=== PATIENT | female | born 1990 | race Two or more races ===

== ENCOUNTER 2021-12-21 16:25 | Emergency (ER) | payer SELFPAY ==
[~2021-12-21] VITALS: Ht 160 cm; Wt 90.9 kg
[2021-12-21 17:02] VITALS: BP 122/100
--- NOTE | 2021-12-21 17:33 | RAD ---
EXAM: XR EXAM OF ANKLE_LEFT 3V 12/21/2021 5:13 PM CLINICAL INDICATION: Right ankle injury COMPARISON: None TECHNIQUE: An oblique, and lateral views of the right ankle were obtained FINDINGS: No acute fracture. Alignment is normal. Joint spaces are maintained. The talar dome is int act. There is a probable accessory navicular noted. Mild circumferential soft tissue swelling. IMPRESSION: No acute osseous abnormality. Mild soft tissue swelling. Electronically signed by: Evon Ray MD (12/21/2021 5:30 PM) AB[facility]IN[facility]
[2021-12-21] MEDS ORDERED: HYDR-2761 PO (17:56)
--- NOTE | 2021-12-21 17:58 | PHYS DOC ---
Past Medical History Additional Past Medical Histor: ADD Past Surgical History: No Surgical History General Adult EDM: Chief Complaint: ANKLE PROBLEM HPI: HPI: Patient is a 31-year-old female who presents to the emergency department for left lateral ankle pain that occurred 2 weeks ago. Patient reports that she was stepping off a step and twisted her ankle. She rates her pain 7 out of 10. She states that she was initially able to bear weight but has had increasing pain causing her inability to fully bear weight. She has been taking ibuprofen at home. She denies any decreased range of motion or wounds or decreased sensation in her extremity. Review of Systems: Review of Systems: Musculoskeletal: See HPI Integument: See HPI Neurologic: See HPI Heart Score: C/O Chest Pain: N/A Risk Factors: Risk Factors: DM, Current or recent (<one month) smoker, HTN, HLP, family history of CAD, obesity. Risk Scores: Score 0 - 3: 2.5% MACE over next 6 weeks - Discharge Home Score 4 - 6: 20.3% MACE over next 6 weeks - Admit for Clinical Observation Score 7 - 10: 72.7% MACE over next 6 weeks - Early Invasive Strategies Physical Exam: PE: Constitutional: Well developed, well nourished, no acute distress, non-toxic appearance. [] HENT: Normocephalic, atraumatic, bilateral external ears normal, oropharynx moist, no oral exudates, nose normal. [] Eyes: PERRL, EOMI, conjunctiva normal, no discharge. [] Neck: Normal range of motion, no stridor Cardiovascular normal peripheral perfusion Lungs & Thorax: Normal work of breathing, no tachypnea Abdomen: Soft and flat Skin: Warm, dry, no erythema, no rash. [] Back: Normal range of motion Extremities: No tenderness, no cyanosis, no clubbing, ROM intact, no edema. [] Left ankle: Mild swelling noted to lateral aspect of left ankle, cap refill less than 3 seconds, no obvious deformity, no crepitus, range of motion intact, neuro intact, no wounds or ecchymosis Neurologic: Alert and oriented X 3, normal motor function, normal sensory function, no focal deficits noted. [] Psychologic: Affect normal, judgement normal, mood normal. [] Current Patient Data: Vital Signs: Vital Signs Date Time Temp Pulse Resp B/P (MAP) Pulse Ox O2 Delivery O2 Flow Rate FiO2 12/21/21 17:02 98.5 66 18 122/100 (107) 99 Room Air 98.5 EKG: EKG: [] Radiology/Procedures: Radiology/Procedures: []PROCEDURE: ANKLE LEFT 3V EXAM: XR EXAM OF ANKLE_LEFT 3V 12/21/2021 5:13 PM CLINICAL INDICATION: Right ankle injury COMPARISON: None TECHNIQUE: An oblique, and lateral views of the right ankle were obtained FINDINGS: No acute fracture. Alignment is normal. Joint spaces are maintained. The talar dome is intact. There is a probable accessory navicular noted. Mild circumferential soft tissue swelling. IMPRESSION: No acute osseous abnormality. Mild soft tissue swelling. Electronically signed by: Evon Ray MD (12/21/2021 5:30 PM) [facility] DICTATED and SIGNED BY: EVON RAY MD DATE: 12/21/21 [id number] 0 Course & Med Decision Making: Course & Med Decision Making Pertinent Labs and Imaging studies reviewed. (See chart for details) [] Patient presents to the emergency department for left lateral ankle pain after twisting her ankle 2 weeks ago. Imaging was performed that showed no acute findings. Patient educated on the rice protocol. Her ankle was placed in an Matt wrap. She was also given pain medication. Patient has crutches that she has been using at home. Patient was given Ortho follow-up. I discussed with patient all findings and diagnostic testing as well as the need to follow- up with PCP for further evaluation and treatment or return to the ER if any new or worsening symptoms. Strict return precautions were also discussed at length. Patient voiced understanding and agreement with the plan. Patient is hemodyna mically stable at the time of disposition. Dragon Disclaimer: Dragon Disclaimer: This electronic medical record was generated, in whole or in part, using a voice recognition dictation system. Departure Departure Impression: Primary Impression: Ankle sprain Qualified Codes: S93.402A - Sprain of unspecified ligament of left ankle, initial encounter Disposition: HOME / SELF CARE / HOMELESS Condition: GOOD Referrals: SHEA DELVALLE II, MD Patient Instructions: RICE - Routine Care for Injuries Additional Instructions: You are seen in the emergency department today for left ankle pain after twisting it 2 weeks ago. An x-ray was performed that showed no acute findings. This will likely improve over time. Your symptoms may be improved by something called the rice protocol. This is rest, ice, compression, elevation. Please follow-up when doing intense exercises that may make the pain worse. Sometimes gentle stretching can provide relief, but be careful to injury. It is important to perform gentle range of motion exercises to prevent stiff joints and chronic pain. Use ice packs over the affected areas to help decrease your pain. For the first 24 hours you can apply ice 20 minutes on 20 minutes off for 4 times per day. Sometimes compression such as the use of an Matt wrap can help with the swelling. You may also elevate the affected area to help with the swelling. You can take anti-inflammatories like ibuprofen or naproxen for pain. For severe pain you can take the medication prescribed to you. This medication is hydrocodone and Tylenol in combination tablet. Do not take any additional Tylenol with this medication. This medication may cause sedation so do not take when you need to be alert, driving a vehicle or with alcohol. You can continue to use your crutches as needed. Follow-up with your primary care provider tomorrow regarding your ER visit. You may have injured a ligament and may require additional imaging. You need to follow-up with an orthopedic doctor if your pain persists, you can follow-up with orthopedic doctor that was attached to this discharge paperwork. Return to the emergency department if you develop worsening of your pain, any new injuries, decreased range of motion or decreased sensation to your extremity. Scripts Hydrocodone Bit/Acetaminophen (HYDROCODONE-APAP 5-325 ) 1 Tab Tablet 1 TAB PO PRN Q6HRS PRN for PAIN for 2 Days, #8 TAB 0 Refills Prov: PERLITA PATEL [employer] 12/21/21 PRELITA PATEL [employer] Dec 21, 2021 17:57
[2021-12-21] MEDS ORDERED: HYDROcodone/APAP 5/325MG 1 TAB TABLET PO ONE (18:30)
== END 2021-12-21 18:21 | disposition home or self-care (01) ==
LOC: ER 16:25
DX: S93.402A Sprain of unspecified ligament of left ankle, initial encounter (principal); X50.9XXA Other and unspecified overexertion or strenuous movements or postures, initial encounter; Y93.89 Activity, other specified; Y92.89 Other specified places as the place of occurrence of the external cause; Y99.8 Other external cause status
CPT/HCPCS: 73610; 99283; A6450